=== PATIENT | female | born 1965 | race Caucasian/White ===

== ENCOUNTER 2024-02-29 01:11 | Emergency (ER) | payer OTHER ==
[~2024-02-29] VITALS: Ht 170.2 cm; Wt 110.0 kg
[~2024-02-29 01:11] MED LIST: ARIP20TA4 PO; ATOR-507 PO; BECL0.07 INH; CETI10TA57 PO; FENO134C19 PO; GABA-1250 PO; GEMF-66 PO; LEVO50TA7 PO; LORA2TAB89 PO; METO-159 PO; MIRT-93 PO; TRAZ-228 PO
[2024-02-29 02:17] VITALS: PULSE 88; RESP 16; O2SAT 100
[2024-02-29 02:43] LABS: Basophils # (auto) 0 10 ^3/uL (0-0.2); Basophils % (auto) 0.3 % (0.0-2.0); Eosinophils # (auto) 0 10 ^3/uL (0-0.8); Eosinophils % (auto) 0.1 % (0.0-7.0); Hematocrit 37.2 % (36.0-46.0); Lymphocytes # (auto) 0.9 10 ^3/uL (0.4-5.4); Lymphocytes % (auto) 9.8 % (10.0-50.0); Mean Corpuscular Hemoglobin 28.4 pg (28.0-32.0); Mean Corpuscular Hgb Conc. 32.3 g/dL (32.0-36.0); Monocytes # (auto) 0.7 10 ^3/uL (0-1.3); Monocytes % (auto) 6.9 % (0.0-12.0); Neutrophils # (auto) 7.9 10 ^3/uL (1.6-8.6); Neutrophils % (auto) 82.9 % (37.0-80.0); Red Blood Cells 4.23 10^6/uL (4.0-5.20); Red Cell Distribution Width 13.6 % (11.8-14.3); White Blood Cell 9.6 10^3/uL (4.4-10.8)
[2024-02-29 03:09] LABS: Alanine Aminotransferase 67 U/L (7-40); Albumin 4.4 g/dL (3.2-4.8); Alkaline Phosphatase 60 U/L (46-116); Anion Gap 8 (5-15); Aspartate Aminotransferase 92 U/L (13-40); BUN/Creatinine Ratio 20.4 (10.0-20.0); Bilirubin, Total 0.3 mg/dL (0.2-1.0); Blood Urea Nitrogen 19 mg/dL (9-23); Calcium 10.4 mg/dL (8.7-10.4); Carbon Dioxide 29 mmol/L (20-30); Chloride 100 mmol/L (98-107); Glucose 153 mg/dL (74-106); Potassium 3.3 mmol/L (3.5-5.1); Sodium 137 mmol/L (136-145)
[2024-02-29 03:10] LABS: Acetaminophen < 2.0 UG/ML (10.0-20.0); Salicylate < 3.0 mg/dL (2.8-20.0); Total Protein 7.4 g/dL (5.7-8.2)
[2024-02-29 03:27] LABS: Blood Alcohol < 3.0 mg/dL (<10)
[2024-02-29 07:43] VITALS: PULSE 125; RESP 14; O2SAT 94
[2024-02-29 17:56] LABS: Urine Bacteria None Seen /hpf (None Seen); Urine WBC None Seen /hpf (0 - 5)
[2024-02-29 18:09] LABS: Urine Blood Negative /uL (Negative); Urine Clarity Ex.Turbid (Clear); Urine Color Yellow (Yellow); Urine Protein, UAD 1+ (Negative); Urine Specific Gravity 1.032 (1.001-1.035); Urine Urobilinogen 2 mg/dL (Negative); Urine pH 5.5 (5.0-9.0)
[2024-02-29 18:20] LABS: Amphetamine Screen, Urine Neg (NEGATIVE); Barbiturate Scree,Urine Neg (NEGATIVE); Benzodiazephine Screen, Urine Neg (NEGATIVE); Cannabinoid Screen, Urine Neg (NEGATIVE); Cocaine Screen, Urine Neg (NEGATIVE); Opiate Scree,Urine Neg (NEGATIVE); Phencyclidine Screen, Urine Neg (NEGATIVE)
[2024-02-29 20:05] VITALS: PULSE 125; RESP 14; O2SAT 94
[2024-02-29] MEDS: MIRTAZAPINE 30 MG TAB PO SCH (22:00)
[2024-02-29] MEDS: OLANZapine 5 MG TAB PO SCH (22:00)
[2024-03-01] MEDS: DULoxetine HCL 30 MG CAP PO SCH (10:20)
[2024-03-03 07:42] VITALS: BP 130/75; PULSE 98; RESP 16; TEMP 97.9; O2SAT 99
== END 2024-03-03 08:00 | disposition short-term general hospital (02) ==
LOC: EDBD 01:11 → ER 01:11
DX: F41.1 Generalized anxiety disorder (principal); F20.9 Schizophrenia, unspecified; F32.9 Major depressive disorder, single episode, unspecified; J45.909 Unspecified asthma, uncomplicated; E78.5 Hyperlipidemia, unspecified; I10 Essential (primary) hypertension; Z79.899 Other long term (current) drug therapy
CPT/HCPCS: 36415; 80053; 80307; 80320; 80329; 81001; 85025